=== PATIENT | male | born 1980 | race American Indian/Alaskan Native ===

== ENCOUNTER 2018-07-12 18:06 | Emergency (ER) | payer OTHER ==
[2018-07-12 18:28] VITALS: BP 122/81
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
--- NOTE | 2018-07-12 21:40 | XRay Report ---
PROCEDURE: LUMBAR SPINE, 2 VIEWS TECHNIQUE: Lumbar spine radiographs, frontal and lateral views. CPT 52468 HISTORY: Low back pain COMPARISONS: None . FINDINGS: Alignment: There is mild degree levoscoliosis. Loss of lumbar lordosis is noted. . Vertebral body heights/Disk spaces: Normal . Fracture(s): None . Facets: Normal . Bone mineralization: Normal . IMPRESSION: No obvious acute abnormality. This document is electronically signed by Vern Love MD., July 12 2018 09:38:53 PM ET
--- NOTE | 2018-07-12 21:44 | XRay Report ---
PROCEDURE: XR SPINE CERVICAL 2-3V TECHNIQUE: Cevical spine, views. HISTORY: neck pain COMPARISONS: None . FINDINGS: Vertebral alignment and height are within normal limits. There is mild degree narrowing of the C5-6 d isc space. Pre and paravertebral soft tissues are within normal limits. An acute fracture is not iden tified. IMPRESSION: No acute abnormality Mild degree Cervical spondylosis at C5-6 This document is electronically signed by Vern Love MD., July 12 2018 09:42:30 PM ET
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
== END 2018-07-12 22:15 | disposition home or self-care (01) ==
LOC: ED 18:06
DX: M25.511 Pain in right shoulder (principal); M25.512 Pain in left shoulder; M54.5 Low back pain; G43.909 Migraine, unspecified, not intractable, without status migrainosus; V49.49XA Driver injured in collision with other motor vehicles in traffic accident, initial encounter; Y93.89 Activity, other specified; Y92.89 Other specified places as the place of occurrence of the external cause; Y99.8 Other external cause status
CPT/HCPCS: 72040; 72100